=== PATIENT | male | born 1965 | race African-American/Black ===

== ENCOUNTER 2024-12-08 09:59 | Inpatient (IN) ==
[2024-12-08] MEDS: SODIUM CHLORIDE 0.9% 1,000 ML IV ONE (10:46)
[2024-12-08] MEDS: MoRPHine SULFATE 4 MG/ML 1 ML CARP\\VIAL IV STA (10:46)
[2024-12-08] MEDS: ONDANSETRON INJ 2 MG/ML 2 ML VIAL IV STA (10:46)
[2024-12-08 11:04] LABS: Basophils # (auto) 0.05 K/uL (0.00-0.20); Basophils % (auto) 0.3 %; Hematocrit (blood only) 45.8 % (42.0-52.0); Hemoglobin 15.9 g/dl (14.0-18.0); Immature Granulocytes # (auto) 0.06 K/uL (0.01-0.20); Immature Granulocytes % (auto) 0.4 %; Lymphocytes # (auto) 0.69 K/uL (1.20-3.40); Lymphocytes % (auto) 4.6 %; Mean Corpuscular Hemoglobin 28.2 pg (25.0-34.0); Mean Corpuscular Hgb Conc 34.7 g/dL (32.0-36.0); Mean Corpuscular Volume 81.2 fL (80.0-100.0); Mean Platelet Volume 11.7 fL (9.4-12.4); Monocytes # (auto) 1.42 K/uL (0.11-0.59); Monocytes % (auto) 9.5 %; Neutrophils # (auto) 12.77 K/uL (1.40-6.50); Neutrophils % (auto) 85.2 %; Platelet Count 221 K/uL (130-400); RDW Coefficient of Variation 12.1 % (11.5-14.5); RDW Standard Deviation 35.6 fL (36.4-46.3); Red Blood Count 5.64 M/uL (4.70-6.10); White Blood Count 14.99 K/ul (4.8-10.8)
--- NOTE | 2024-12-08 11:05 | Emergency Department Note ---
ED Provider Note History of Present Illness Chief Complaint: GI Assessment Stated Complaint: POSSIBLE GALLBLADDER ATTACK Time Seen by Provider: 12/08/24 10:28 Source: patient Mode of arrival: ambulatory Limitations: no limitations Patient is a 59-year-old male who presents to the emergency department with complaints of right upper quadrant abdominal pain. Patient notes that his pain started on Saturday. Patient is concerned that his pain could be related to a gallbladder attack though the patient has no personal history or family history of gallbladder issues. Patient notes some associated nausea, headache, chills, and general fatigue. Patient reports that his daughter is getting over the flu when he was around her. Home Medications Medication Instructions Recorded Confirmed Type No Known Home Medications 12/08/24 12/08/24 History Allergies Allergy/AdvReac Type Severity Reaction Status Date / Time No Known Allergies Allergy Unverified 12/08/24 14:35 Past Med/Surg History Problem List (Updated 12/08/24 @ 16:31 by JA Martin) Gastritis (Acute) DKA (diabetic ketoacidosis) (Acute) Diabetes mellitus (Acute) Open fracture of finger (Acute) Social History Smoking Status: Never smoker Preferred Language: Indonesian Feels Safe at Home: Yes Physical Exam Vital Signs Vital Signs - 24 hr 12/08/24 10:08 12/08/24 10:37 12/08/24 11:10 Temperature 36.7 C Temperature Source Temporal Artery Scan Pulse Rate 131 H 110 H Pulse Rate from SpO2 Sensor Pulse Rhythm Regular Pulse Strength Normal Respiratory Rate 18 Respiratory Effort / Characteristics Non-Labored Spontaneous Respiratory Depth Normal Respiratory Pattern Regular Blood Pressure 131/101 H Blood Pressure Mean 111 Blood Pressure Position Sitting Pulse Oximetry 96 98 Oxygen Delivery Method Room Air Room Air Sepsis Recent Fever Within 48 Hours No Sepsis New/Unexplained Change in Mental Status N/A Sepsis Action Taken by Nursing No Action Required 12/08/24 11:20 12/08/24 12:11 12/08/24 13:48 Temperature Temperature Source Pulse Rate 107 H 106 H 109 H Pulse Rate from SpO2 Sensor 107 H 107 H 109 H Pulse Rhythm Pulse Strength Respiratory Rate 22 26 H 24 Respiratory Effort / Characteristics Respiratory Depth Respiratory Pattern Blood Pressure 160/89 H 160/97 H Blood Pressure Mean 112 118 Blood Pressure Position Pulse Oximetry 95 94 94 Oxygen Delivery Method Room Air Room Air Room Air Sepsis Recent Fever Within 48 Hours Sepsis New/Unexplained Change in Mental Status Sepsis Action Taken by Nursing 12/08/24 14:33 12/08/24 15:15 12/08/24 15:16 Temperature Temperature Source Pulse Rate 109 H 112 H 112 H Pulse Rate from SpO2 Sensor 109 H Pulse Rhythm Pulse Strength Respiratory Rate 20 26 H Respiratory Effort / Characteristics Respiratory Depth Respiratory Pattern Blood Pressure 163/97 H Blood Pressure Mean 119 Blood Pressure Position Pulse Oximetry 96 Oxygen Delivery Method Room Air Sepsis Recent Fever Within 48 Hours Sepsis New/Unexplained Change in Mental Status Sepsis Action Taken by Nursing VITAL SIGNS - Vital signs and nursing notes were reviewed. GENERAL -59-year-old male appearing his stated age who is in no acute distress. Communicates well with provider and answers questions appropriately. HEAD - NC/AT. EYES - PERRL with EOMI bilaterally. Conjunctiva pink and moist with no injection noted. EARS - No deformities of external structures noted on gross examination bilaterally. NOSE - Midline and without cyanosis. No epistaxis or purulent drainage noted. LUNGS - Chest wall symmetric without accessory muscle use, intercostals retractions, or central cyanosis. Breath sounds clear throughout all obando. No wheezes, rales, or rhonchi appreciated. CARDIAC - RRR with S1/S2. No murmur, rubs, or gallops appreciated. ABDOMEN - Abdominal contour without pulsations or visible masses. Negative Montgomery's or Pritchett John's Signs. BS normoactive all four quadrants. Increased tenderness to palpation appreciated in the right upper quadrant of the abdomen. No guarding. No rebound Tenderness. No palpable masses, hepatosplenomegaly, or ascites noted. NEUROLOGIC - Sensory intact to light touch throughout. PSYCH - A&Ox3 and cooperates fully with examiner. Pt is very pleasant and interacts well with examiner. Course Administered Medications Discontinued Medications Sodium Chloride (Nss) 1,000 mls @ 999 mls/hr IV .Q1H1M ONE Stop: 12/08/24 11:41 Last Infusion: 12/08/24 12:05 Dose: Infused Documented By: Admin: 12/08/24 10:46 Dose: 999 mls/hr Documented By: YARIEL Ioversol (Optiray 320 100ml) 93 ml IV ONCE ONE Stop: 12/08/24 11:48 Last Admin: 12/08/24 11:48 Dose: 93 ml Documented By: CANDACE Morphine Sulfate (Morphine Sulfate 4 Mg/Ml 1 Ml Carp\Vial) 4 mg IV NOW STA Stop: 12/08/24 10:42 Last Admin: 12/08/24 10:46 Dose: 4 mg Documented By: YARIEL Ondansetron HCl (Ondansetron Inj 2 Mg/Ml 2 Ml Vial) 4 mg IV NOW STA Stop: 12/08/24 10:42 Last Admin: 12/08/24 10:46 Dose: 4 mg Documented By: YARIEL Medical Decision Making Differential Diagnosis Differential diagnoses includes gastritis, gastroenteritis, IBS, small bowel obstruction, pancreatitis, peritonitis, constipation, abdominal abcess, cholecystitis, cholelithiasis, among others. Medical Records Attestation: I reviewed the patient's medical records. Home Medications was personally reviewed by me Laboratory Data Attestation: I reviewed the patient's lab results. 12/08/24 10:45 12/08/24 10:45 Lab Results 12/08/24 12/08/24 12/08/24 Range/Units 10:40 10:45 13:42 WBC 14.99 H (4.8-10.8) K/ul RBC 5.64 (4.70-6.10) M/uL Hgb 15.9 (14.0-18.0) g/dl Hct 45.8 (42.0-52.0) % MCV 81.2 (80.0-100.0) fL MCH 28.2 (25.0-34.0) pg MCHC 34.7 (32.0-36.0) g/dL RDW Std Deviation 35.6 L (36.4-46.3) fL RDW Coeff of Jacoby 12.1 (11.5-14.5) % Plt Count 221 (130-400) K/uL MPV 11.7 (9.4-12.4) fL Immature Gran % (Auto) 0.4 % Neut % (Auto) 85.2 % Lymph % (Auto) 4.6 % [place] % (Auto) 9.5 % Eos % (Auto) 0.0 % Baso % (Auto) 0.3 % Neut # (Auto) 12.77 H (1.40-6.50) K/uL Lymph # (Auto) 0.69 L (1.20-3.40) K/uL [place] # (Auto) 1.42 H (0.11-0.59) K/uL Eos # (Auto) 0.00 (0.00-0.50) K/uL Baso # (Auto) 0.05 (0.00-0.20) K/uL Immature Gran # (Auto) 0.06 (0.01-0.20) K/uL Sodium 124 L (136-145) mmol/L Potassium 4.0 (3.5-5.1) mmol/L Chloride 92 L (98-107) mmol/L Carbon Dioxide 18 L (21-32) mmol/L Anion Gap 14 H (3-11) BUN 21 (6-23) mg/dl Creatinine 1.27 (0.6-1.4) mg/dl Est Cr Clr Drug Dosing 81.5 ml/min eGFR 65.49 BUN/Creatinine Ratio 16.5 (10-20) Glucose 366 H* (70-99(Fasting)) mg/dl POC Glucose (70-99) mg/dl Calcium 8.8 (8.6-10.3) mg/dl Total Bilirubin 1.0 (0.2-1.0) mg/dl AST 46 H (13-39) U/L ALT 42 (7-52) U/L Alkaline Phosphatase 61 (34-104) U/L Total Protein 8.6 H (6.0-8.3) gm/dl Albumin 3.8 (3.4-5.0) gm/dl Globulin 4.8 H (2.5-4.0) gm/dl Albumin/Globulin Ratio 0.8 L (0.9-2) Lipase 32 (11-82) U/L Urine Color Dark Yellow Urine Appearance Clear (Clear) Urine pH 5.5 (4.5-7.5) Ur Specific [place] 1.031 H (1.000-1.030) Urine Protein 3+ H (Negative) Urine Glucose (UA) 3+ H (Negative) Urine Ketones 2+ H (Negative) Urine Blood 1+ H (Negative) Urine Nitrite Negative (Negative) Urine Bilirubin Negative (Negative) Urine Urobilinogen Negative (Negative) Ur Leukocyte Esterase Negative (Negative) Urine WBC (Auto) 0-5 (0-5) /hpf Urine RBC (Auto) 0-2 (0-2) /hpf U Hyaline Cast (Auto) >20 H (0-2) /lpf U Epithel Cells (Auto) 3-5 H (0-2) /hpf Urine Bacteria (Auto) None Seen (None Seen) Hyaline Casts Present A (None Presnt) /lpf Granular Casts Present A (None Prsent) /lpf Urine Comment Adenovirus (PCR) Not Detected (NotDetected) B. pertussis DNA (PCR) Not Detected (NotDetected) B.parapertussis DNA PCR Not Detected (NotDetected) C. pneumoniae DNA (PCR) Not Detected (NotDetected) Coronavirus OC43 (PCR) Not Detected (NotDetected) Coronavirus HKU1 (PCR) Not Detected (NotDetected) Coronavirus 229E (PCR) Not Detected (NotDetected) SARS-CoV-2 (PCR) Not Detected (NotDetected) Coronavirus NL63 (PCR) Not Detected (NotDetected) Human Metapneumovir PCR Not Detected (NotDetected) Influenza Type A (PCR) Not Detected (NotDetected) Influenza Type B (PCR) Not Detected (NotDetected) M. pneumoniae (PCR) Not Detected (NotDetected) Parainfluenza 1 (PCR) Not Detected (NotDetected) Parainfluenza 2 (PCR) Not Detected (NotDetected) Parainfluenza 3 (PCR) Not Detected (NotDetected) Parainfluenza 4 (PCR) Not Detected (NotDetected) RSV (PCR) Not Detected (NotDetected) Entero/Rhino (PCR) Not Detected (NotDetected) 12/08/24 Range/Units 15:32 WBC (4.8-10.8) K/ul RBC (4.70-6.10) M/uL Hgb (14.0-18.0) g/dl Hct (42.0-52.0) % MCV (80.0-100.0) fL MCH (25.0-34.0) pg MCHC (32.0-36.0) g/dL RDW Std Deviation (36.4-46.3) fL RDW Coeff of Jacoby (11.5-14.5) % Plt Count (130-400) K/uL MPV (9.4-12.4) fL Immature Gran % (Auto) % Neut % (Auto) % Lymph % (Auto) % [place] % (Auto) % Eos % (Auto) % Baso % (Auto) % Neut # (Auto) (1.40-6.50) K/uL Lymph # (Auto) (1.20-3.40) K/uL [place] # (Auto) (0.11-0.59) K/uL Eos # (Auto) (0.00-0.50) K/uL Baso # (Auto) (0.00-0.20) K/uL Immature Gran # (Auto) (0.01-0.20) K/uL Sodium (136-145) mmol/L Potassium (3.5-5.1) mmol/L Chloride (98-107) mmol/L Carbon Dioxide (21-32) mmol/L Anion Gap (3-11) BUN (6-23) mg/dl Creatinine (0.6-1.4) mg/dl Est Cr Clr Drug Dosing ml/min eGFR BUN/Creatinine Ratio (10-20) Glucose (70-99(Fasting)) mg/dl POC Glucose 294 H (70-99) mg/dl Calcium (8.6-10.3) mg/dl Total Bilirubin (0.2-1.0) mg/dl AST (13-39) U/L ALT (7-52) U/L Alkaline Phosphatase (34-104) U/L Total Protein (6.0-8.3) gm/dl Albumin (3.4-5.0) gm/dl Globulin (2.5-4.0) gm/dl Albumin/Globulin Ratio (0.9-2) Lipase (11-82) U/L Urine Color Urine Appearance (Clear) Urine pH (4.5-7.5) Ur Specific [place] (1.000-1.030) Urine Protein (Negative) Urine Glucose (UA) (Negative) Urine Ketones (Negative) Urine Blood (Negative) Urine Nitrite (Negative) Urine Bilirubin (Negative) Urine Urobilinogen (Negative) Ur Leukocyte Esterase (Negative) Urine WBC (Auto) (0-5) /hpf Urine RBC (Auto) (0-2) /hpf U Hyaline Cast (Auto) (0-2) /lpf U Epithel Cells (Auto) (0-2) /hpf Urine Bacteria (Auto) (None Seen) Hyaline Casts (None Presnt) /lpf Granular Casts (None Prsent) /lpf Urine Comment Adenovirus (PCR) (NotDetected) B. pertussis DNA (PCR) (NotDetected) B.parapertussis DNA PCR (NotDetected) C. pneumoniae DNA (PCR) (NotDetected) Coronavirus OC43 (PCR) (NotDetected) Coronavirus HKU1 (PCR) (NotDetected) Coronavirus 229E (PCR) (NotDetected) SARS-CoV-2 (PCR) (NotDetected) Coronavirus NL63 (PCR) (NotDetected) Human Metapneumovir PCR (NotDetected) Influenza Type A (PCR) (NotDetected) Influenza Type B (PCR) (NotDetected) M. pneumoniae (PCR) (NotDetected) Parainfluenza 1 (PCR) (NotDetected) Parainfluenza 2 (PCR) (NotDetected) Parainfluenza 3 (PCR) (NotDetected) Parainfluenza 4 (PCR) (NotDetected) RSV (PCR) (NotDetected) Entero/Rhino (PCR) (NotDetected) Imaging Data Radiologist's Impression: Abdomen/Pelvis CT 12/08/24 10:[address] WITH IV CONTRAST CT DOSE: 1497.24 mGy.cm HISTORY: RUQ pain TECHNIQUE: Multiaxial CT images of the abdomen and pelvis were performed following the IV administration of 90 cc of Optiray, A dose lowering technique was utilized adhering to the principles of ALARA. COMPARISON STUDY: None FINDINGS: ABDOMEN: There is severe fatty liver. Otherwise the liver, gallbladder, spleen, pancreas, and adrenal glands are unremarkable. Kidneys show no hydronephrosis. There are is a small calculus at the left mid kidney. There is a tiny cyst left mid kidney. There are mild atherosclerotic calcifications. No abdominal aortic aneurysm. Pelvis: Prostate is mildly enlarged. Urinary bladder is mildly distended. There is sigmoid diverticulosis. No acute diverticulitis. No bowel inflammation or obstruction seen. No free fluid, free air, or abscess. There is mild lower lumbar disc disease with grade 1 anterolisthesis of L5 on S1. IMPRESSION: No acute findings seen. ACT 112: Negative or not required by law. The above report was generated using voice recognition software. It may contain grammatical, syntax or spelling errors. Electronically signed by: Bart Ireland M.D. 12/08/2024 12:28 PM Gallbladder Ultrasound 12/08/24 12:32 US gallbladder CLINICAL HISTORY: RUQ pain COMPARISON STUDY: CT scan earlier today FINDINGS: Pancreas is obscured by bowel gas. There is severe fatty liver. Deep portion of the liver is not well seen. Common bile duct has normal diameter of 5 mm. Gallbladder is unremarkable with no gallstones or gallbladder wall thickening. No pericholecystic fluid or ascites. Right kidney shows no hydronephrosis. IMPRESSION: 1. No gallstones or evidence of acute cholecystitis seen. 2. Severe fatty liver. ACT 112: Negative or not required by law. Electronically signed by: Bart Ireland M.D. 12/08/2024 1:25 PM MDM Narrative Patient is a 59-year-old male who presents to the emergency department with complaints of right upper quadrant abdominal pain. Patient notes that his pain started on Saturday. Patient is concerned that his pain could be related to a gallbladder attack though the patient has no personal history or family history of gallbladder issues. Patient notes some associated nausea, headache, chills, and general fatigue. Patient reports that his daughter is getting over the flu when he was around her. Patient was evaluated by myself and findings were noted in the physical exam above. Patient was ordered IV placement, lab work, urinalysis, and CT of the abdomen pelvis. Patient's lab work resulted with an elevated white blood cell count of 14.99. Patient had no indication of anemia with hemoglobin of 15.9 and hematocrit 45.8. Patient was hyponatremic with a sodium of 124. Patient also had an elevated blood glucose of 366. Patient's chloride was also low at 92 and a carbon dioxide of 18. Patient does report that he has been nauseous, vomiting and having diarrhea for the last several days. Patient did have a urinalysis that was positive for protein, glucose, ketones and blood. While the patient's lab work results may be related to some level of dehydration due to his vomiting and diarrhea, he also has had concerns about diabetes and is not currently being treated with anything for diabetes. Patient was also ordered an upper respiratory viral panel due to his daughter being recently diagnosed with the flu and he had contact with her, however his upper respiratory viral panel was negative for any viral process. Patient also had an abdomen pelvis CT which was completed and interpreted by radiology to show no acute findings. The prostate was mildly enlarged and the patient had some diverticulosis without evidence of acute diverticulitis. The patient also had a gallbladder/right upper quadrant ultrasound completed due to his right upper quadrant pain however that ultrasound was completed and interpreted by radiology to show no gallstones or evidence of acute cholecystitis. The patient did have fatty liver noted on ultrasound as well. I discussed all these findings with the patient and his significant other at bedside who both verbalized understanding. I discussed with the patient that it would be reasonable to admit him to the hospital for new onset of uncontrolled diabetes as he does have some electrolyte imbalance and ketones in his urine that could be indicative of complications due to uncontrolled diabetes, such as hyponatremia. Patient verbalized understanding and was agreeable to the plan for admission as he was concerned about going home and not feeling any better and his current nausea and discomfort making things worse at home. I reached out to the [facility] hospitalist group and spoke with them regarding admission of this patient. They were given a full report of the patient's chief complaint, current status and the results of his lab work and imaging. They are agreeable to admit the patient under Dr. Torres's service. Please refer to the [facility] hospitalist group's documentation for further evaluation and management of this patient. Impression Diabetes mellitus, Gastritis, DKA (diabetic ketoacidosis) Discharge Plan Visit Data Chief Complaint: GI Assessment Stated Complaint: POSSIBLE GALLBLADDER ATTACK ED Provider: Waldo Shin ED Midlevel Provider: Jammie Aguilar Discharge Problem: Diabetes mellitus, Gastritis, DKA (diabetic ketoacidosis) Patient Disposition: Admitted As Inpatient Condition: Fair Forms Stand Alone Forms: [employer] Prescriptions Prescriptions: No Action No Known Home Medications Referrals Referrals: PCP,NO [Physician] - ED DC CONDITION Conditon at Discharge Condition at Discharge: Fair Discharge Problem: Diabetes mellitus Qualifiers: Diabetes mellitus type: type 2 Diabetes mellitus fci insulin use: without technician terminal and repeater use Diabetes mellitus complication status: with ketoacidosis Diabetes mellitus complication detail: without coma Qualified Code(s): E11.10 - Type 2 diabetes mellitus with ketoacidosis without coma Gastritis Qualifiers: Gastritis type: unspecified gastritis Chronicity: acute Gastritis bleeding: w ithout bleeding Qualified Code(s): K29.00 - Acute gastritis without bleeding DKA (diabetic ketoacidosis) Qualifiers: Diabetes mellitus type: type 2 Diabetes mellitus complication detail: without coma Qualified Code(s): E11.10 - Type 2 diabetes mellitus with ketoacidosis without coma
[2024-12-08 11:32] LABS: Albumin Globulin Ratio 0.8 (0.9-2); Albumin Level 3.8 gm/dl (3.4-5.0); BUN Creatinine Ratio 16.5 (10-20); Calcium 8.8 mg/dl (8.6-10.3); Creatinine Clr Calc Pharmacy 81.5 ml/min; Globulin 4.8 gm/dl (2.5-4.0); Total Protein 8.6 gm/dl (6.0-8.3)
[2024-12-08 11:42] LABS: Adenovirus PCR Not Detected (NotDetected); Bordetella parapertussis PCR Not Detected (NotDetected); Bordetella pertussis PCR Not Detected (NotDetected); Chlamydia pneumoniae PCR Not Detected (NotDetected); Coronavirus 229E PCR Not Detected (NotDetected); Coronavirus CoV-2 (COVID19)PCR Not Detected (NotDetected); Coronavirus HKU1 PCR Not Detected (NotDetected); Coronavirus NL63 PCR Not Detected (NotDetected); Coronavirus OC43PCR Not Detected (NotDetected); Human Metapneumovirus PCR Not Detected (NotDetected); Influenza A PCR Not Detected (NotDetected); Influenza B PCR Not Detected (NotDetected); Mycoplasma pneumoniae PCR Not Detected (NotDetected); Parainfluenza Virus 1 PCR Not Detected (NotDetected); Parainfluenza Virus 2 PCR Not Detected (NotDetected); Parainfluenza Virus 3 PCR Not Detected (NotDetected); Parainfluenza Virus 4 PCR Not Detected (NotDetected); Respiratory Syncytial VirusPCR Not Detected (NotDetected); Rhinovirus/Enterovirus PCR Not Detected (NotDetected)
[2024-12-08] MEDS: OPTIRAY 320 100ml IV ONE (11:48)
--- NOTE | 2024-12-08 12:30 | CT Scan Report ---
ABDOMEN AND PELVIS CT WITH IV CONTRAST CT DOSE: 1497.24 mGy.cm HISTORY: RUQ pain TECHNIQUE: Multiaxial CT images of the abdomen and pelvis were performed following the IV administrat ion of 90 cc of Optiray, A dose lowering technique was utilized adhering to the principles of ALARA. COMPARISON STUDY: None FINDINGS: ABDOMEN: There is severe fatty liver. Otherwise the liver, gallbladder, spleen, pancreas, and adrenal glands are unremarkable. Kidneys show no hydronephrosis. There are is a small calculus at the left m id kidney. There is a tiny cyst left mid kidney. There are mild atherosclerotic calcifications. No ab dominal aortic aneurysm. Pelvis: Prostate is mildly enlarged. Urinary bladder is mildly distended. There is sigmoid diverticul osis. No acute diverticulitis. No bowel inflammation or obstruction seen. No free fluid, free air, or abscess. There is mild lower lumbar disc disease with grade 1 anterolisthesis of L5 on S1. IMPRESSION: No acute findings seen. ACT 112: Negative or not required by law. The above report was generated using voice recognition software. It may contain grammatical, syntax o r spelling errors. Electronically signed by: Bart Ireland M.D. 12/08/2024 12:28 PM
--- NOTE | 2024-12-08 13:27 | Ultrasound Report ---
US gallbladder CLINICAL HISTORY: RUQ pain COMPARISON STUDY: CT scan earlier today FINDINGS: Pancreas is obscured by bowel gas. There is severe fatty liver. Deep portion of the liver i s not well seen. Common bile duct has normal diameter of 5 mm. Gallbladder is unremarkable with no ga llstones or gallbladder wall thickening. No pericholecystic fluid or ascites. Right kidney shows no h ydronephrosis. IMPRESSION: 1. No gallstones or evidence of acute cholecystitis seen. 2. Severe fatty liver. ACT 112: Negative or not required by law. Electronically signed by: Bart Ireland M.D. 12/08/2024 1:25 PM
[2024-12-08 14:01] LABS: Appearance Urine Clear (Clear); Bacteria Urine Automated None Seen (None Seen); Bilirubin Urine Negative (Negative); Blood Urine 1+ (Negative); Cast Urine Automated >20 /lpf (0-2); Color Urine Dark Yellow; Glucose Urine UA 3+ (Negative); Granular Casts Urine Present /lpf (None Prsent); Hyaline Casts Urine Present /lpf (None Presnt); Ketones Urine 2+ (Negative); Leukocyte Esterase Urine Negative (Negative); Nitrite Urine Negative (Negative); Protein Urine 3+ (Negative); RBC Urine Automated 0-2 /hpf (0-2); Specific Gravity Urine 1.031 (1.000-1.030); Urobilinogen Urine Negative (Negative); WBC Urine Automated 0-5 /hpf (0-5); pH Urine 5.5 (4.5-7.5)
[2024-12-08] MEDS ORDERED: PHARMACY GLYCEMIC MGMT CONSULT PRN ×3 (15:08→20:17)
--- NOTE | 2024-12-08 15:08 | Communication Note ---
Date of Service: December 08, 2024 Multiple Incidental Findings on CT Abd/pelvis: There is severe fatty liver. There are is a small calculus at the left mid kidney. There is a tiny cyst left mid kidney. There are mild atherosclerotic calcifications. Prostate is mildly enlarged. There is mild lower lumbar disc disease with grade 1 anterolisthesis of L5 on S1. Further work up, management, and ff up as outpatient Trenton Torres MD
--- NOTE | 2024-12-08 15:17 | History & Physical Report ---
Date of Service December 08, 2024 Assessment & Plan (1) Diabetes mellitus: (2) DKA (diabetic ketoacidosis): (3) Gastritis: Plan The patient is a 59-year-old male who presented to the ED on 12/08/2024 with complaints of right upper quadrant pain and diarrhea. Found to be newly diab etic and in mild DKA New DM 2 Hyponatremia DKA Sugar on arrival 366, anion gap elevated at 14, bicarb 18, UA + ketones Given IV fluids in the ED, check VBG/lactic, start insulin drip, check A1c Corrected sodium 129, likely dry due to recent diarrhea, continue IV fluids and recheck BMP Check lipid panel for completeness, will likely need to be started on insulin on discharge Gastroenteritis Reports abdominal pain, CT A/P unremarkable for anything acute Reports at least 10 episodes of diarrhea over the past 3 days, likely viral, check stool culture Lipase within normal limits, right upper quadrant ultrasound negative Fatty liver: -Noted on CT A/P, will need outpatient follow-up Total of 60 minutes spent on chart review/reviewing diagnostic data/results) care/discussion with consultants Full code DVT prophylaxis: Lovenox History of Present Illness Chief Complaint: Abdominal pain, diarrhea Primary Care Provider: Td Emanuel MD The patient is a 59-year-old male with no past medical history who presents to the ED on 12/08/2024 with complaints of abdominal pain and diarrhea over the past 2 days. Reports his 8-year-old daughter also has a respiratory illness. His [id number] had C. difficile 3 weeks ago. Patient reports right upper quadrant abdominal pain. Denies any nausea or vomiting. Reports chills but denies any actual fevers. Reports the last time he saw a DrGomez Was about 2 years ago. Unsure of the last time he got blood work. Was never diagnosed with diabetes or prediabetes. On arrival to the ED, labs remarkable for WBC 14, blood glucose 366, NA 124, bicarb 18, anion gap 14, AST 46 Urinalysis + ketones Gallbladder ultrasound negative Abdomen/pelvis CT negative for anything acute, severe fatty liver noted The patient will be admitted for further management of gastritis and new diabetes and suspected DKA Allergies Allergy/AdvReac Type Severity Reaction Status Date / Time No Known Allergies Allergy Unverified 12/08/24 14:35 Home Medications Medication Instructions Recorded Confirmed Type No Known Home Medications 12/08/24 12/08/24 History Past Med/Surg History Problem List (Updated 12/08/24 @ 16:31 by JA Martin) Gastritis (Acute) DKA (diabetic ketoacidosis) (Acute) Diabetes mellitus (Acute) Open fracture of finger (Acute) Social History Smoking Status: Never smoker Preferred Language: [place] Feels Safe at Home: Yes Review of Systems Review of Systems: All systems reviewed & are unremarkable except as noted in HPI & below Physical Exam Constitutional: WD/WN, vitals as above Eyes: PERRL, conjunctivae normal, anicteric sclerae ENMT: external ear and nose normal, oropharynx normal Neck: trachea midline, no thyromegaly Respiratory: normal respiratory effort, lungs clear to auscultation Cardiovascular: RRR, no murmur, no edema Gastrointestinal (Abdomen): normal bowel sounds, soft, nontender, no hepatosplenomegaly Musculoskeletal: no cyanosis or clubbing, extremities motor strength 5/5 Skin: no rashes, warm and dry Neurologic: PERRL, EOMI, accommodation nl, no face palsy, no dysarthria Psychiatric: A+Ox3, euthymic affect Lymphatic: no cervical or axillary lymphadenopathy Results & Data Results & Data Vital Signs (Past 12 Hours) Vital Signs Temp Pulse Resp BP Pulse Ox O2 Del Method 12/08/24 12:11 106 H 26 H 160/89 H 94 Room Air 12/08/24 11:20 107 H 22 95 Room Air 12/08/24 11:10 110 H 12/08/24 10:37 98 Room Air 12/08/24 10:08 36.7 C 131 H 18 131/101 H 96 Room Air Diagnostic Findings Laboratory Results WBC 14.99 K/ul (4.8-10.8) H 12/08/24 10:45 RBC 5.64 M/uL (4.70-6.10) 12/08/24 10:45 Hgb 15.9 g/dl (14.0-18.0) 12/08/24 10:45 Hct 45.8 % (42.0-52.0) 12/08/24 10:45 MCV 81.2 fL (80.0-100.0) 12/08/24 10:45 MCH 28.2 pg (25.0-34.0) 12/08/24 10:45 MCHC 34.7 g/dL (32.0-36.0) 12/08/24 10:45 RDW Std Deviation 35.6 fL (36.4-46.3) L 12/08/24 10:45 RDW Coeff of Jacoby 12.1 % (11.5-14.5) 12/08/24 10:45 Plt Count 221 K/uL (130-400) 12/08/24 10:45 MPV 11.7 fL (9.4-12.4) 12/08/24 10:45 Immature Gran % (Auto) 0.4 % 12/08/24 10:45 Neut % (Auto) 85.2 % 12/08/24 10:45 Lymph % (Auto) 4.6 % 12/08/24 10:45 Carolina % (Auto) 9.5 % 12/08/24 10:45 Eos % (Auto) 0.0 % 12/08/24 10:45 Baso % (Auto) 0.3 % 12/08/24 10:45 Neut # (Auto) 12.77 K/uL (1.40-6.50) H 12/08/24 10:45 Lymph # (Auto) 0.69 K/uL (1.20-3.40) L 12/08/24 10:45 Carolina # (Auto) 1.42 K/uL (0.11-0.59) H 12/08/24 10:45 Eos # (Auto) 0.00 K/uL (0.00-0.50) 12/08/24 10:45 Baso # (Auto) 0.05 K/uL (0.00-0.20) 12/08/24 10:45 Immature Gran # (Auto) 0.06 K/uL (0.01-0.20) 12/08/24 10:45 Sodium 124 mmol/L (136-145) L 12/08/24 10:45 Potassium 4.0 mmol/L (3.5-5.1) 12/08/24 10:45 Chloride 92 mmol/L (98-107) L 12/08/24 10:45 Carbon Dioxide 18 mmol/L (21-32) L 12/08/24 10:45 Anion Gap 14 (3-11) H 12/08/24 10:45 BUN 21 mg/dl (6-23) 12/08/24 10:45 Creatinine 1.27 mg/dl (0.6-1.4) 12/08/24 10:45 Est Cr Clr Drug Dosing 81.5 ml/min 12/08/24 10:45 eGFR 65.49 12/08/24 10:45 BUN/Creatinine Ratio 16.5 (10-20) 12/08/24 10:45 Glucose 366 mg/dl (70-99(Fasting)) H* 12/08/24 10:45 Calcium 8.8 mg/dl (8.6-10.3) 12/08/24 10:45 Total Bilirubin 1.0 mg/dl (0.2-1.0) 12/08/24 10:45 AST 46 U/L (13-39) H 12/08/24 10:45 ALT 42 U/L (7-52) 12/08/24 10:45 Alkaline Phosphatase 61 U/L (34-104) 12/08/24 10:45 Total Protein 8.6 gm/dl (6.0-8.3) H 12/08/24 10:45 Albumin 3.8 gm/dl (3.4-5.0) 12/08/24 10:45 Globulin 4.8 gm/dl (2.5-4.0) H 12/08/24 10:45 Albumin/Globulin Ratio 0.8 (0.9-2) L 12/08/24 10:45 Lipase 32 U/L (11-82) 12/08/24 10:45 Urine Color Dark Yellow 12/08/24 13:42 Urine Appearance Clear (Clear) 12/08/24 13:42 Urine pH 5.5 (4.5-7.5) 12/08/24 13:42 Ur Specific [place] 1.031 (1.000-1.030) H 12/08/24 13:42 Urine Protein 3+ (Negative) H 12/08/24 13:42 Urine Glucose (UA) 3+ (Negative) H 12/08/24 13:42 Urine Ketones 2+ (Negative) H 12/08/24 13:42 Urine Blood 1+ (Negative) H 12/08/24 13:42 Urine Nitrite Negative (Negative) 12/08/24 13:42 Urine Bilirubin Negative (Negative) 12/08/24 13:42 Urine Urobilinogen Negative (Negative) 12/08/24 13:42 Ur Leukocyte Esterase Negative (Negative) 12/08/24 13:42 Urine WBC (Auto) 0-5 /hpf (0-5) 12/08/24 13:42 Urine RBC (Auto) 0-2 /hpf (0-2) 12/08/24 13:42 U Hyaline Cast (Auto) >20 /lpf (0-2) H 12/08/24 13:42 U Epithel Cells (Auto) 3-5 /hpf (0-2) H 12/08/24 13:42 Urine Bacteria (Auto) None Seen (None Seen) 12/08/24 13:42 Hyaline Casts Present /lpf (None Presnt) A 12/08/24 13:42 Granular Casts Present /lpf (None Prsent) A 12/08/24 13:42 Urine Comment 12/08/24 13:42 Adenovirus (PCR) Not Detected (NotDetected) 12/08/24 10:40 B. pertussis DNA (PCR) Not Detected (NotDetected) 12/08/24 10:40 B.parapertussis DNA PCR Not Detected (NotDetected) 12/08/24 10:40 C. pneumoniae DNA (PCR) Not Detected (NotDetected) 12/08/24 10:40 Coronavirus OC43 (PCR) Not Detected (NotDetected) 12/08/24 10:40 Coronavirus HKU1 (PCR) Not Detected (NotDetected) 12/08/24 10:40 Coronavirus 229E (PCR) Not Detected (NotDetected) 12/08/24 10:40 SARS-CoV-2 (PCR) Not Detected (NotDetected) 12/08/24 10:40 Coronavirus NL63 (PCR) Not Detected (NotDetected) 12/08/24 10:40 Human Metapneumovir PCR Not Detected (NotDetected) 12/08/24 10:40 Influenza Type A (PCR) Not Detected (NotDetected) 12/08/24 10:40 Influenza Type B (PCR) Not Detected (NotDetected) 12/08/24 10:40 M. pneumoniae (PCR) Not Detected (NotDetected) 12/08/24 10:40 Parainfluenza 1 (PCR) Not Detected (NotDetected) 12/08/24 10:40 Parainfluenza 2 (PCR) Not Detected (NotDetected) 12/08/24 10:40 Parainfluenza 3 (PCR) Not Detected (NotDetected) 12/08/24 10:40 Parainfluenza 4 (PCR) Not Detected (NotDetected) 12/08/24 10:40 RSV (PCR) Not Detected (NotDetected) 12/08/24 10:40 Entero/Rhino (PCR) Not Detected (NotDetected) 12/08/24 10:40 Impressions Abdomen/Pelvis CT 12/08/24 10:[address] WITH IV CONTRAST CT DOSE: 1497.24 mGy.cm HISTORY: RUQ pain TECHNIQUE: Multiaxial CT images of the abdomen and pelvis were performed following the IV administration of 90 cc of Optiray, A dose lowering technique was utilized adhering to the principles of ALARA. COMPARISON STUDY: None FINDINGS: ABDOMEN: There is severe fatty liver. Otherwise the liver, gallbladder, spleen, pancreas, and adrenal glands are unremarkable. Kidneys show no hydronephrosis. There are is a small calculus at the left mid kidney. There is a tiny cyst left mid kidney. There are mild atherosclerotic calcifications. No abdominal aortic a neurysm. Pelvis: Prostate is mildly enlarged. Urinary bladder is mildly distended. There is sigmoid diverticulosis. No acute diverticulitis. No bowel inflammation or obstruction seen. No free fluid, free air, or abscess. There is mild lower lumbar disc disease with grade 1 anterolisthesis of L5 on S1. IMPRESSION: No acute findings seen. ACT 112: Negative or not required by law. The above report was generated using voice recognition software. It may contain grammatical, syntax or spelling errors. Electronically signed by: Bart Ireland M.D. 12/08/2024 12:28 PM Gallbladder Ultrasound 12/08/24 12:32 US gallbladder CLINICAL HISTORY: RUQ pain COMPARISON STUDY: CT scan earlier today FINDINGS: Pancreas is obscured by bowel gas. There is severe fatty liver. Deep portion of the liver is not well seen. Common bile duct has normal diameter of 5 mm. Gallbladder is unremarkable with no gallstones or gallbladder wall thickening. No pericholecystic fluid or ascites. Right kidney shows no hydronephrosis. IMPRESSION: 1. No gallstones or evidence of acute cholecystitis seen. 2. Severe fatty liver. ACT 112: Negative or not required by law. Electronically signed by: Bart Ireland M.D. 12/08/2024 1:25 PM Supervising Physician Co-Signing Physician Notes Attending Addendum: Case reviewed with the advanced practitioner. I have personally performed a history and physical examination on the patient. I have reviewed the advanced practitioner's documentation on the date of service referenced in note, and I agree with, and take responsibility for the plan of care. please refer to her notes for full details patient seen and examined, records reviewed by myself as well on exam, patient seen resting in bed, comfortable not in distress states he feels ok overall has mild headache, no focal neuro symptoms, chest pain, nausea abdominal pain improving no other symptoms VS noted and reviewed oriented x3, not in distress, speaks in sentences with no effort nor accessory muscle use mild tachycardia, regular rhythm, no murmurs clear breath sounds bilaterally non distended, soft, nontender no bipedal edema, erythema, warmth no neuro deficits all labs, imaging noted and reviewed ASSESSMENT AND PLAN> METABOLIC ACIDOSIS likely from GASTROENTERITIS POSSIBLE SEPSIS anion gap and metabolic acidosis resolved after IV fluids lactic acid normal check stool panel, c diff, blood cultures empiric Cipro IV given diarrhea more than 10x a day, fever IV fluids, clear liquids DM, NEW DIAGNOSIS admitted with metabolic acidosis with anion gap, that resolved with just IV fluids check a1c Pharmacy glycemic consult metabolic acidosis and anion gap resolved, d/c Insulin drip, transition to SC insulin DM educator HEADACHE, MILD CONFUSION late afternoon, patient's reported patient was saying illogical things, also reporting headache, temp 39+ BSG 261 from morphine? sepsis? check CT head to r/o CVA, bleed neurocheck q4h INCIDENTAL FINDINGS ON CT ABD/PELVIS please refer to communication note will need further work up and close outpatient ff up other diagnoses and plan of care as per advanced practitioner's notes I spent a total of 60 minutes coordinating, documenting, and providing care for this patient, excluding time spent in the performance of separately billed services or time spent by another provider/QHP. Trenton Torres MD
[2024-12-08] MEDS ORDERED: CARBOHYDRATES FOR HYPOGLYCEMIA PO PRN (15:30)
[2024-12-08] MEDS ORDERED: GLUCOSE 40% GEL 15 GM TUBE PO PRN (15:30)
[2024-12-08] MEDS ORDERED: NovoLIN-R BOLUS FROM BAG IV ONE (15:30)
[2024-12-08] MEDS ORDERED: GLUCOSE 10 TAB/TUBE PO PRN (15:30)
[2024-12-08] MEDS ORDERED: GLUCAGON FOR INJ 1 MG VIAL SQ PRN (15:30)
[2024-12-08] MEDS ORDERED: DEXTROSE 50% 50 ML SYRINGE IV PRN (15:30)
[2024-12-08] MEDS: LACTATED RINGER'S 250 ML IV ONE (16:43)
[2024-12-08] MEDS: INSULIN REGULAR 250 UNITS in SODIUM CHLORIDE 0.9% 247.5 ML IV SCH (16:44)
[2024-12-08 17:10] LABS: BUN Creatinine Ratio 16.4 (10-20); Calcium 8.7 mg/dl (8.6-10.3); Chol HDL Ratio 4.7 (0-5); Creatinine Clr Calc Pharmacy 94.1 ml/min; Magnesium 1.8 mg/dl (1.7-2.4); Phosphorus 1.7 mg/dl (2.5-4.9); Potassium 4.1 mmol/L (3.5-5.1)
[2024-12-08] MEDS: ACETAMINOPHEN 325 MG TAB PO PRN (17:33)
[2024-12-08 17:57] LABS: Estimated Average Glucose 278 mg/dl; Hemoglobin A1C 11.3 % (4.5-5.6)
[2024-12-08] MEDS ORDERED: INSULIN REGULAR 250 UNITS in SODIUM CHLORIDE 0.9% 247.5 ML IV SCH (18:50)
[2024-12-08] MEDS ORDERED: INSULIN ASPART PER UNIT CHARGE SC SCH (18:50)
[2024-12-08] MEDS ORDERED: ONDANSETRON INJ 2 MG/ML 2 ML VIAL IV PRN (18:50)
[2024-12-08] MEDS ORDERED: STAT IV Infusion **Titration per Protocol STA (18:50)
[2024-12-08] MEDS ORDERED: PLASMA-LYTE A 1,000 ML IV SCH (18:50)
[2024-12-08] MEDS ORDERED: ACETAMINOPHEN 325 MG TAB PO PRN (18:50)
[2024-12-08] MEDS: INSULIN ASPART PER UNIT CHARGE SC SCH ×2 (19:14→21:39)
[2024-12-08] MEDS: STAT IV Infusion **Titration per Protocol STA (19:14)
[2024-12-08] MEDS: CIPROFLOXACIN / D5W 400 MG/200 ML BAG IV STA (19:38)
[2024-12-08 20:13] LABS: BUN Creatinine Ratio 15.9 (10-20); Calcium 8.8 mg/dl (8.6-10.3); Creatinine Clr Calc Pharmacy 96.8 ml/min; Magnesium 1.9 mg/dl (1.7-2.4); Phosphorus 1.8 mg/dl (2.5-4.9); Potassium 3.5 mmol/L (3.5-5.1)
--- NOTE | 2024-12-08 20:29 | CT Scan Report ---
EXAM: CT head/brain wo con CLINICAL HISTORY: headache, confusion TECHNIQUE: Axial non-contrast CT scan of the brain was performed from the skull base to the high parietal region. One of the following dose reduction techniques were utilized for this exam: Automated exposure control, adjustment of the mA and/or kV according to patient size, use of iterative reconstruction. COMPARISON: none. FINDINGS: Brain Parenchyma: Normal attenuation of the cerebral hemispheres, cerebellum, and brainstem. No evidence of acute infarct, hemorrhage, or mass effect. No abnormal areas of hypo- or hyperattenuation. Ventricular System: Ventricles are normal in size and configuration. No evidence of hydrocephalus or ventricular enlargement. Subarachnoid Spaces: Normal sulci and cisterns. No evidence of subarachnoid hemorrhage or extra-axial fluid collections. Cerebellum and Brainstem: No masses, lesions, or areas of abnormal density. Orbits: Normal appearance of the globes, optic nerves, and extraocular muscles. No evidence of orbital masses or abnormal density. Sinuses: Clear paranasal sinuses. No evidence of sinusitis or mucosal thickening. Mastoid Air Cells: Clear mastoid air cells. No evidence of mastoiditis. Skull: Normal skull morphology. IMPRESSION: Normal CT of the head without contrast. No evidence of acute infarct, hemorrhage, or mass effect. Electronically signed by Jak Dai 12-08-2024 8:29 PM
[2024-12-08] MEDS: PLASMA-LYTE A 1,000 ML IV SCH (20:42)
[2024-12-08] MEDS: POTASSIUM PHOSPHATE 21 MMOL in SODIUM CHLORIDE 0.9% 500 ML IV ONE (20:44)
[2024-12-08] MEDS: POTASSIUM PHOS 3 MMOL/1 ML INFUSION IV STA (20:44)
--- NOTE | 2024-12-08 21:50 | Electrocardiogram Report ---
Test Reason : Blood Pressure : */* mmHG Vent. Rate : 118 BPM Atrial Rate : 118 BPM P-R Int : 146 ms QRS Dur : 76 ms QT Int : 350 ms P-R-T Axes : 60 62 81 degrees QTcB Int : 490 ms Sinus tachycardia Incomplete right bundle branch block Anterior infarct , age undetermined Prolonged QT Abnormal ECG No previous ECGs available Confirmed by Alec Almanzar ([id number]) on 12/08/2024 9:50:40 PM Referred By: REFERRED SELF Confirmed By: Alec Almanzar
[2024-12-09] MEDS: INSULIN ASPART PER UNIT CHARGE SC SCH (00:02)
[2024-12-09 03:27] LABS: Basophils # (auto) 0.06 K/uL (0.00-0.20); Basophils % (auto) 0.5 %; Eosinophils # (auto) 0.02 K/uL (0.00-0.50); Eosinophils % (auto) 0.2 %; Hematocrit (blood only) 41.8 % (42.0-52.0); Hemoglobin 14.4 g/dl (14.0-18.0); Immature Granulocytes # (auto) 0.04 K/uL (0.01-0.20); Immature Granulocytes % (auto) 0.3 %; Lymphocytes # (auto) 1.22 K/uL (1.20-3.40); Mean Corpuscular Hemoglobin 28.1 pg (25.0-34.0); Mean Corpuscular Hgb Conc 34.4 g/dL (32.0-36.0); Mean Corpuscular Volume 81.5 fL (80.0-100.0); Mean Platelet Volume 11.7 fL (9.4-12.4); Monocytes # (auto) 1.83 K/uL (0.11-0.59); Monocytes % (auto) 15.1 %; Neutrophils # (auto) 8.97 K/uL (1.40-6.50); Neutrophils % (auto) 73.9 %; Platelet Count 181 K/uL (130-400); RDW Standard Deviation 36.2 fL (36.4-46.3); Red Blood Count 5.13 M/uL (4.70-6.10); White Blood Count 12.14 K/ul (4.8-10.8)
[2024-12-09 03:43] LABS: Albumin Globulin Ratio 0.7 (0.9-2); Albumin Level 3.1 gm/dl (3.4-5.0); BUN Creatinine Ratio 15.7 (10-20); Bilirubin,Total 0.8 mg/dl (0.2-1.0); Calcium 8.7 mg/dl (8.6-10.3); Creatinine Clr Calc Pharmacy 101.5 ml/min; Globulin 4.4 gm/dl (2.5-4.0); Phosphorus 2.7 mg/dl (2.5-4.9); Potassium 4.5 mmol/L (3.5-5.1); Total Protein 7.5 gm/dl (6.0-8.3)
[2024-12-09] MEDS: CIPROFLOXACIN / D5W 400 MG/200 ML BAG IV SCH (06:00)
[2024-12-09] MEDS ORDERED: POTASSIUM PHOS 3 MMOL/1 ML INFUSION IV STA (08:26)
[2024-12-09] MEDS: LANTUS PER UNIT CHARGE SC SCH (08:31)
[2024-12-09] MEDS: POTASSIUM PHOSPHATE 15 MMOL in SODIUM CHLORIDE 0.9% 250 ML IV ONE (09:28)
--- NOTE | 2024-12-09 10:02 | Pharmacy Report ---
Pharmacy Glycemic Short Note 2 - Date of Service December 09, 2024 - Glycemic Short BSG Results (Last 24 hours): 12/08/24 12/08/24 12/08/24 10:45 15:32 16:05 Glucose 366 H* 306 H* POC Glucose 294 H 12/08/24 12/08/24 12/08/24 16:05 16:27 16:41 Glucose Cancelled Cancelled POC Glucose 293 H 12/08/24 12/08/24 12/08/24 17:26 18:29 19:19 Glucose 162 H POC Glucose 261 H 206 H 12/08/24 12/08/24 12/08/24 20:00 20:28 21:33 Glucose POC Glucose 126 H 156 H 185 H 12/08/24 12/09/24 12/09/24 23:46 03:11 03:56 Glucose 200 H POC Glucose 207 H 216 H 12/09/24 07:17 Glucose POC Glucose 205 H OUTPATIENT ANTIDIABETIC REGIMEN: * n/a ASSESSMENT: * Patient presenting with complaints of right upper quadrant pain/diarrhea. Also found to be newly diabetic/mild DKA on admission. Had initially been started on insulin infusion, however labs quickly resolved and transitioned to SQ insulin * Fasting BSG 205 mg/dL this AM - plan to start basal 0.2 units/kg daily in addition to novolog. A1c ~11% - patient would likely benefit from insulin at time of discharge. DM educator consulted. PLAN FOR INPATIENT GLYCEMIC CONTROL: * Basal insulin * Lantus 25 units daily * Bolus insulin * NovoLog per scale ACHS or Q6hrs while NPO * Goal Range: Low 110 mg/dL - High 140 mg/dL * Correction Factor: 20 mg/dL/unit * Nutritional / Prandial insulin per carb ratio of 1 unit per 7 grams CHO consumed
[2024-12-09 11:19] LABS: C. diff 027-NAP1-BI NEGATIVE; Cdiff Toxin B Gene (2yr or >) Negative Cdiff Gene (Neg)
[2024-12-09 11:47] LABS: Adenovirus F 40/41 PCR Not Detected (NotDetected); Astrovirus PCR Not Detected (NotDetected); Campylobacter PCR Not Detected (NotDetected); Cryptosporidium PCR Not Detected (NotDetected); Cyclospora cayetanensis PCR Not Detected (NotDetected); Entamoeba histolytica PCR Not Detected (NotDetected); Enteroaggregative E.coli(EAEC) Not Detected (NotDetected); Enteropathogenic E.coli (EPEC) Not Detected (NotDetected); Enterotoxigenic E.coli (ETEC) Not Detected (NotDetected); Giardia lamblia PCR Not Detected (NotDetected); Norovirus GI/GII PCR Not Detected (NotDetected); Plesiomonas shigelloides PCR Not Detected (NotDetected); Rotavirus A PCR Not Detected (NotDetected); Salmonella PCR Not Detected (NotDetected); Sapovirus PCR Not Detected (NotDetected); Shiga-like Toxin E.coli (STEC) Not Detected (NotDetected); Shigella/Enteroinvasive E.coli Not Detected (NotDetected); Vibrio cholerae PCR Not Detected (NotDetected); Vibrio species PCR Not Detected (NotDetected); Yersinia enterocolitica PCR Not Detected (NotDetected)
[2024-12-09] MEDS: SODIUM CHLORIDE 0.9% 500 ML IV SCH (13:01)
--- NOTE | 2024-12-09 15:04 | Discharge Summary ---
Discharge Summary Date of Service December 09, 2024 Principal Dx & Hospital Course #1 = Principal Diagnosis (1) Diabetes mellitus: (2) DKA (diabetic ketoacidosis): (3) Gastroenteritis: Plan 59 year old male with no significant PMH who presented to the ED on 12/08/2024 with complaints of right upper quadrant pain and diarrhea. Found to be newly diabetic and in mild DKA, which prompted admission. DKA Likely due to viral gastroenteritis Admitting labs revealed glucose 366, anion gap 14, bicarb 18, UA +ketones Received IV fluids and insulin drip for short period of time Labs improved and patient was transitioned to subQ insulin Tolerated regular diet prior to discharge Diabetes mellitus A1C 11.3%; lipid panel: Chol 132, LDL 83, HDL 28, Tri 105 Patient discharged on SQ insulin - glycemic pharmacist consulted Discussed lifestyle modifications and patient admits he can make lots of changes to diet and increase exercise Patient met with our nurse informatics educator while inpatient Patient has not seen a doctor in over 2 years - advise establishment with PCP for further outpatient management - is scheduling an appointment with [facility] Abdominal pain Gastroenteritis Patient reports diarrhea x2 days, likely viral RUQ US and CT abdomen negative for acute processes Stool PCR and cdiff gene and toxin all negative Recommend supportive care Abnormal CT findings Incidental findings include: -Severe fatty liver (of note, transaminitis with AST 68 and ALT 56) -Small calculus at left mid kidney and tiny cyst left mid kidney -Mild atherosclerotic calcifications -Prostate mildly enlarged -Urinary bladder is mildly distended -Sigmoid diverticulosis -Mild lower lumbar disc disease with grade 1 anterolisthesis of L5 on S1 Patient seen in collaboration with Dr Sal. Please see addendum. Notes For Next Care Provider 59 year old male with no PMH who presented to [facility] ED with abdominal pain and diarrhea who was found to be newly diabetic and in mild DKA. DKA resolved with IV fluids and an insulin drip for a short period of time. Labs improved and patient was tolerating a regular diet by time of discharge. Diarrhea likely related to viral gastroenteritis. Obtained stool PCR and cdiff studies which were all negative. Recommend supportive care for diarrhea. A1C found to be 11.3%. Patient met with nurse informatics educator while inpatient. Discharged on subQ insulin. Recommend further outpatient management of new diagnosis of DM. Admission HPI Per Admitting Provider The patient is a 59-year-old male with no past medical history who presents to the ED on 12/08/2024 with complaints of abdominal pain and diarrhea over the past 2 days. Reports his 8-year-old daughter also has a respiratory illness. His [id number] had C. difficile 3 weeks ago. Patient reports right upper quadrant abdominal pain. Denies any nausea or vomiting. Reports chills but denies any actual fevers. Reports the last time he saw a Dr. Was about 2 years ago. Unsure of the last time he got blood work. Was never diagnosed with diabetes or prediabetes. On arrival to the ED, labs remarkable for WBC 14, blood glucose 366, NA 124, bicarb 18, anion gap 14, AST 46 Urinalysis + ketones Gallbladder ultrasound negative Abdomen/pelvis CT negative for anything acute, severe fatty liver noted The patient will be admitted for further management of gastritis and new diabetes and suspected DKA Admission Exam Per Admitting Provider Constitutional: WD/WN, vitals as above Eyes: PERRL, conjunctivae normal, anicteric sclerae ENMT: external ear and nose normal, oropharynx normal Neck: trachea midline, no thyromegaly Respiratory: normal respiratory effort, lungs clear to auscultation Cardiovascular: RRR, no murmur, no edema Gastrointestinal (Abdomen): normal bowel sounds, soft, nontender, no hepatosplenomegaly Musculoskeletal: no cyanosis or clubbing, extremities motor strength 5/5 Skin: no rashes, warm and dry Neurologic: PERRL, EOMI, accommodation nl, no face palsy, no dysarthria Psychiatric: A+Ox3, euthymic affect Lymphatic: no cervical or axillary lymphadenopathy Discharge Exam General/Psych: WD/WN, sitting up in bed, NAD, conversing easily, euthymic affect Head: normocephalic, atraumatic Eyes: normal inspection, PERRL, conjunctivae pink, anicteric sclerae ENT: external ear and nose normal, oropharynx normal Neck: normal visual inspection, trachea midline Respiratory: normal respiratory effort, lungs clear to auscultation, no wheeze/rales/rhonchi, no accessory muscle use Cardiovascular: regular rate and rhythm, no murmur/rub/gallop, no JVD Extremities: no cyanosis or clubbing, normal peripheral pulses, no BLE edema Abdomen/GI: normal bowel sounds, soft, nontender, no hepatosplenomegaly Neurologic/MSK: A+Ox3, motor strength 5/5, moves all extremities Skin: no rashes, normal color, warm and dry Updated Medication List Medication Instructions Recorded Confirmed Type No Known Home Medications 12/08/24 12/08/24 History Hospital Stay Data Consultations 12/08/24 14:58 ED Decision to Admit Stat Diagnostic Imagining Performed Abdomen/Pelvis CT 12/08/24 10:[address] WITH IV CONTRAST CT DOSE: 1497.24 mGy.cm HISTORY: RUQ pain TECHNIQUE: Multiaxial CT images of the abdomen and pelvis were performed following the IV administration of 90 cc of Optiray, A dose lowering technique was utilized adhering to the principles of ALARA. COMPARISON STUDY: None FINDINGS: ABDOMEN: There is severe fatty liver. Otherwise the liver, gallbladder, spleen, pancreas, and adrenal glands are unremarkable. Kidneys show no hydronephrosis. There are is a small calculus at the left mid kidney. There is a tiny cyst left mid kidney. There are mild atherosclerotic calcifications. No abdominal aortic aneurysm. Pelvis: Prostate is mildly enlarged. Urinary bladder is mildly distended. There is sigmoid diverticulosis. No acute diverticulitis. No bowel inflammation or obstruction seen. No free fluid, free air, or abscess. There is mild lower lumbar disc disease with grade 1 anterolisthesis of L5 on S1. IMPRESSION: No acute findings seen. ACT 112: Negative or not required by law. The above report was generated using voice recognition software. It may contain grammatical, syntax or spelling errors. Electronically signed by: Bart Ireland M.D. 12/08/2024 12:28 PM Gallbladder Ultrasound 12/08/24 12:32 US gallbladder CLINICAL HISTORY: RUQ pain COMPARISON STUDY: CT scan earlier today FINDINGS: Pancreas is obscured by bowel gas. There is severe fatty liver. Deep portion of the liver is not well seen. Common bile duct has normal diameter of 5 mm. Gallbladder is unremarkable with no gallstones or gallbladder wall thickening. No pericholecystic fluid or ascites. Right kidney shows no hydronephrosis. IMPRESSION: 1. No gallstones or evidence of acute cholecystitis seen. 2. Severe fatty liver. ACT 112: Negative or not required by law. Electronically signed by: Bart Ireland M.D. 12/08/2024 1:[address] 12/08/24 17:39 EXAM: CT head/brain wo con CLINICAL HISTORY: headache, confusion TECHNIQUE: Axial non-contrast CT scan of the brain was performed from the skull base to the high parietal region. One of the following dose reduction techniques were utilized for this exam: Automated exposure control, adjustment of the mA and/or kV according to patient size, use of iterative reconstruction. COMPARISON: none. FINDINGS: Brain Parenchyma: Normal attenuation of the cerebral hemispheres, cerebellum, and brainstem. No evidence of acute infarct, hemorrhage, or mass effect. No abnormal areas of hypo- or hyperattenuation. Ventricular System: Ventricles are normal in size and configuration. No evidence of hydrocephalus or ventricular enlargement. Subarachnoid Spaces: Normal sulci and cisterns. No evidence of subarachnoid hemorrhage or extra-axial fluid collections. Cerebellum and Brainstem: No masses, lesions, or areas of abnormal density. Orbits: Normal appearance of the globes, optic nerves, and extraocular muscles. No evidence of orbital masses or abnormal density. Sinuses: Clear paranasal sinuses. No evidence of sinusitis or mucosal thickening. Mastoid Air Cells: Clear mastoid air cells. No evidence of mastoiditis. Skull: Normal skull morphology. IMPRESSION: Normal CT of the head without contrast. No evidence of acute infarct, hemorrhage, or mass effect. Electronically signed by Jak Dai 12-08-2024 8:29 PM Pending Results Patient Have Any Pending Studies at Discharge: Yes Discharge Instructions Given to Patient (Per Discharging Provider) You presented to the hospital with abdominal pain and diarrhea. We performed labs which showed you were in diabetic ketoacidosis (DKA), which is a complication of diabetes mellitus, which you are now being diagnosed with. We treated your DKA with IV insulin and IV fluids, and monitored your labs closely, which improved on these IV drips. The DKA was likely caused by your viral GI bug. We tested your stool and you do not have c diff. You should continue to hydrate and eat a gentle diet such as bananas, rice, applesauce, and toast. Your hemoglobin A1C was found to be 11%. In a patient with known diabetes, we typically like that number to be around 7%. Since you are newly diagnosed, we started you on subcutaneous insulin and you met with our nurse informatics educator who reviewed important pieces of management of diabetes at home. We highly recommend you establish care with a PCP so that they can monitor and manage your diabetes further. We also recommend lifestyle modifications such as eating a healthy well balanced diet and getting regular physical activity. MEDICATION CHANGES: SUMMARY OF TEST RESULTS: See above PENDING TEST RESULTS: Glutamic acid decarboxylase-65 RECOMMENDATIONS FOR FOLLOW-UP: Please follow up with a PCP to discuss your new diagnosis of diabetes and for further management of this. OTHER INSTRUCTIONS: Seek medical attention if you have: * temperature above 101 * chest pain or trouble breathing * abdominal pain, nausea, vomiting * diarrhea, dark stools or bloody stools * any unanswered questions or concerns Call 911 if symptoms are severe. It has been a pleasure taking care of you. Please take care of yourself. If you have any questions regarding your recent hospitalization please contact [facility] and request Omero Haileist @ [phone]. Total Time Total Time Spent Total Time Spent (In Minutes): I spent a total of 35 minutes coordinating, documenting and providing care for this patient excluding time spent in the performance of separately billed services or time spent by another provider/QHP.
--- NOTE | 2024-12-09 15:42 | Hospitalist Progress Note ---
Date of Service December 09, 2024 Assessment & Plan (1) Diabetes mellitus: (2) DKA (diabetic ketoacidosis): (3) Gastroenteritis: (4) Contact dermatitis: Plan 59 year old male with no significant PMH who presented to the ED on 12/08/2024 with complaints of right upper quadrant pain and diarrhea. Found to be newly diabetic and in mild DKA, which prompted admission. DKA Likely due to viral gastroenteritis Admitting labs revealed glucose 366, anion gap 14, bicarb 18, UA +ketones Received IV fluids and insulin drip for short period of time Labs improved and patient was transitioned to subQ insulin Tolerating carb consistent diet Diabetes mellitus A1C 11.3%; lipid panel: Chol 132, LDL 83, HDL 28, Tri 105 Patient to be discharged on SQ insulin - glycemic pharmacist consulted Discussed lifestyle modifications and patient admits he can make lots of changes to diet and increase exercise Patient met with our patient educator on 12/09/2024 Patient has not seen a doctor in over 2 years - advise establishment with PCP for further outpatient management - is scheduling an appointment with [facility] Abdominal pain Gastroenteritis Patient reports diarrhea x6 days, likely viral RUQ US and CT abdomen negative for acute processes Stool PCR and cdiff gene and toxin all negative Recommend supportive care with fluids and immodium PRN Rash New onset rash to back of right knee and lower left back Appears contact dermatitis in nature Not bothersome to patient unless touched Cortisone ointment PRN Abnormal CT findings Incidental findings include: -Severe fatty liver (of note, transaminitis with AST 68 and ALT 56) -Small calculus at left mid kidney and tiny cyst left mid kidney -Mild atherosclerotic calcifications -Prostate mildly enlarged -Urinary bladder is mildly distended -Sigmoid diverticulosis -Mild lower lumbar disc disease with grade 1 anterolisthesis of L5 on S1 Rash New onset rash to back of right knee and lower left back Appears contact dermatitis in nature Not bothersome to patient unless touched Cortisone ointment PRN Code Status: FULL CODE PCP: None Disposition: downgrade to med surg and plan for dc tomorrow Patient seen in collaboration with Dr Sal. Please see addendum. I spent a total of 60 minutes coordinating, documenting and providing care for this patient excluding time spent in the performance of separately billed services or time spent by another provider/QHP. Admission and Anticipated Discharge Date Admission Date: December 08, 2024 Supervising Physician Co-Signing Physician Notes Patient seen and examined at bedside. Patient doing well today overall, still having some lightheadedness, some diarrhea, otherwise feels close to baseline. See my above physical exam that I added. Patient with newly diagnosed diabetes mellitus c/b DKA, likely triggered by gastroenteritis which has now resolved. Will monitor overnight and give fluids, likely discharge tomorrow. I have seen and discussed the case with the collaborating advanced practitioner. I agree with the above H&P. I have reviewed and confirmed the patients medical history, the findings on physical examination, and the patients diagnosis and treatment plan with Otilia PERES and agree with the information documented. I spent a total of 30 minutes coordinating, documenting, and providing care for this patient excluding time spent in the performance of separately billed services. All of the aforementioned completed outside of collaborating with the assigned advanced practitioner for a full treatment plan. I have reviewed the advanced practitioner's documentation, and I agree with, and take responsibility for the plan of care Subjective Patient seen and examined at bedside. Patient feeling a bit lightheaded with movement, some diarrhea, otherwise close to baseline. Review of Systems Review of Systems: CONSTITUTIONAL: lightheaded, diarrhea EYES: Patient denies any visual symptoms. EARS, NOSE, AND THROAT: No difficulties with hearing. No symptoms of rhinitis or sore throat. CARDIOVASCULAR: Patient denies chest pains, palpitations, orthopnea and paroxysmal nocturnal dyspnea. RESPIRATORY: No dyspnea on exertion, no wheezing or cough. GI: No nausea, vomiting, diarrhea, constipation, abdominal pain, hematochezia or melena. : No urinary hesitancy or dribbling. No nocturia or urinary frequency. No abnormal urethral discharge. MUSCULOSKELETAL: No myalgias or arthralgias. NEUROLOGIC: No chronic headaches, no seizures. Patient denies numbness, tingling or weakness. PSYCHIATRIC: Patient denies problems with mood disturbance. No problems with anxiety. ENDOCRINE: No excessive urination or excessive thirst. DERMATOLOGIC: Patient denies any rashes or skin changes. Physical Exam Physical Exam: Gen: A&O NAD HEENT: NCAT, EOMI, not icteric. External ears normal. No rhinorrhea. Moist mucous membranes. Neck: Supple, full range of motion, no observable masses, No meningeal sign. Lungs: No Respiratory distress. CV: RRR, no edema. Abdomen: Soft, nondistended, No rebound tenderness. MSK: No joint swelling, no redness. Skin: No rashes, petechiae, lesions. Normal color per patient. Neuro: Normal Gait, Grossly intact. Psych: Appropriate for situation. Results & Data Results & Data Vital Signs (Past 12 Hours) Vital Signs Temp Pulse Pulse Resp BP Pulse Ox O2 Del Method 12/09/24 11:21 37.0 C 85 18 132/84 96 Room Air 12/09/24 10:00 Room Air 12/09/24 07:20 37.4 C 88 18 110/73 95 Room Air 12/09/24 07:05 94 H 12/09/24 03:54 36.7 C 82 16 110/72 96 Room Air Laboratory Results -personally reviewed, AG closed x2, creatinine improved since admission Medications Administered Acetaminophen (Acetaminophen 325 Mg Tab) 650 mg PO Q4H PRN PRN Reason: fever/pain Stop: 01/07/25 17:21 Last Admin: 12/09/24 15:48 Dose: 650 mg Documented By: Admin: 12/09/24 08:21 Dose: 650 mg Documented By: Admin: 12/09/24 00:02 Dose: 650 mg Documented By: Admin: 12/08/24 17:33 Dose: 650 mg Documented By: IZZY Insulin Aspart (Insulin Aspart Per Unit Charge) 0 units SC ACHS [facility] Stop: 01/07/25 20:59 Last Admin: 12/09/24 12:59 Dose: 8 units Documented By: ELMER Co-signed By: MARTA Admin: 12/09/24 08:30 Dose: 4 units Documented By: ELMER Co-signed By: ANGELITO Admin: 12/08/24 21:39 Dose: 2 units Documented By: SANDOVAL Co-signed By: LINO Insulin Glargine (Lantus Per Unit Charge) 25 units SC DAILY [facility] Stop: 01/08/25 08:59 Last Admin: 12/09/24 08:31 Dose: 25 units Documented By: ELMER Co-signed By: ANGELITO (1) Diabetes mellitus Diabetes mellitus complication detail: without coma Diabetes mellitus complication status: with ketoacidosis Diabetes mellitus exterminator helper termite insulin use: without exterminator helper termite use Diabetes mellitus type: type 2 Qualified Code(s): E11.10 - Type 2 diabetes mellitus with ketoacidosis without coma (2) DKA (diabetic ketoacidosis) Diabetes mellitus complication detail: without coma Diabetes mellitus type: type 2 Qualified Code(s): E11.10 - Type 2 diabetes mellitus with ketoacidosis without coma
[2024-12-09] MEDS: LOPERAMIDE HCL 2 MG CAP PO PRN (17:10)
[2024-12-09] MEDS: SODIUM CHLORIDE 0.9% 1,000 ML IV SCH (17:12)
[2024-12-09] MEDS: HYDROCORTISONE 1% CRM 30 GM TUBE EXT PRN (18:15)
[2024-12-10 06:42] LABS: BUN Creatinine Ratio 14.1 (10-20); Calcium 7.9 mg/dl (8.6-10.3); Creatinine Clr Calc Pharmacy 112.6 ml/min; Magnesium 1.9 mg/dl (1.7-2.4); Phosphorus 2.4 mg/dl (2.5-4.9); Potassium 3.6 mmol/L (3.5-5.1)
[2024-12-10 07:17] LABS: Hematocrit (blood only) 37.3 % (42.0-52.0); Hemoglobin 12.8 g/dl (14.0-18.0); Mean Corpuscular Hemoglobin 28.2 pg (25.0-34.0); Mean Corpuscular Hgb Conc 34.3 g/dL (32.0-36.0); Mean Corpuscular Volume 82.2 fL (80.0-100.0); Mean Platelet Volume 12.7 fL (9.4-12.4); Platelet Count 122 K/uL (130-400); Platelet Estimate Normal (Normal); RDW Standard Deviation 36.3 fL (36.4-46.3); Red Blood Count 4.54 M/uL (4.70-6.10); White Blood Count 11.05 K/ul (4.8-10.8)
[2024-12-10] MEDS: LANTUS PER UNIT CHARGE SC SCH (08:50)
--- NOTE | 2024-12-10 10:42 | XRay Report ---
XR chest 1V portable CLINICAL HISTORY: febrile COMPARISON STUDY: 12/10/2024 FINDINGS: Heart size and pulmonary vasculature are normal. No effusion, consolidation, or pneumothora x. IMPRESSION: No pneumonia seen. ACT 112: Negative or not required by law. Electronically signed by: Bart Ireland M.D. 12/10/2024 10:40 AM
[2024-12-10] MEDS: DOXYCYCLINE HYCLATE 100 MG CAP PO STA (11:14)
[2024-12-10] MEDS: cefTRIAXone SODIUM 2,000 MG/50 ML BAG IV SCH (11:14)
--- NOTE | 2024-12-10 14:22 | Pharmacy Report ---
Pharmacy Glycemic Short Note 2 - Date of Service December 10, 2024 - Glycemic Short BSG Results (Last 24 hours): 12/09/24 12/09/24 12/10/24 16:18 20:05 05:46 Glucose 135 H POC Glucose 149 H 169 H 12/10/24 12/10/24 07:35 11:20 Glucose POC Glucose 126 H 160 H OUTPATIENT ANTIDIABETIC REGIMEN: * n/a A1c = 11.3% ASSESSMENT: 12/10: * Allen received 49 units of SC insulin yesterday (25 units basal, 24 units bolus) * Fasting BSG of 126 mg/dL. Although at goal, anticipate further reduction in fasting with repeated doses of Lantus. Will decrease Lantus dose by ~20%. * Post prandial BSG control is adequate. No changes to Novolog today. 12/09: * Patient presenting with complaints of right upper quadrant pain/diarrhea. Also found to be newly diabetic/mild DKA on admission. Had initially been started on insulin infusion, however labs quickly resolved and transitioned to SQ insulin * Fasting BSG 205 mg/dL this AM - plan to start basal 0.2 units/kg daily in addition to novolog. A1c ~11% - patient would likely benefit from insulin at time of discharge. DM educator consulted. PLAN FOR INPATIENT GLYCEMIC CONTROL: * Basal insulin * Lantus 20 units SC daily * Bolus insulin * NovoLog per scale ACHS or Q6hrs while NPO * Goal Range: Low 110 mg/dL - High 140 mg/dL * Correction Factor: 20 mg/dL/unit * Nutritional / Prandial insulin per carb ratio of 1 unit per 7 grams CHO consumed
--- NOTE | 2024-12-10 15:31 | Hospitalist Progress Note ---
Date of Service December 10, 2024 Assessment & Plan (1) Diabetes mellitus: (2) DKA (diabetic ketoacidosis): (3) Gastroenteritis: (4) Cellulitis: (5) Abnormal CT of the abdomen: Plan Patient is a 59-year-old male with no significant past medical history who presented to the ED on 12/08/24 with complaints of right upper quadrant pain and diarrhea. He was found to be in mild DKA ISO newly diagnosed DM which subsequently prompted admission. #Newly diagnosed DM c/b DKA Hgb A1c 11.3%; lipid panel: chol 132, LDL 83, HDL 28, tri 105 Admitting labs revealed glucose 366, anion gap 14, bicarb 18, + ketonuria S/p IVF and short-term IV insulin drip w/ subsequent resolution in DKA Transitioned to SQ insulin Seen by para educator, d/c recs: -Semglee 1x/day (25U) in AM. -Start Metformin via outpatient providers office/once GI symptoms resolve -Dexcom G7 CGM for 24/7 close monitoring --> if fingersticks, SMBG 2x/day (fasting and another time) -Lifestyle changes --> healthy/balanced meals with fiber/carbs, more non- starchy vegetables, small portions of carbs/starches Scripts sent and received at pt's pharmacy Pt has not seen a doctor in over 2 years --> is scheduling an appointment with [facility] #Abdominal pain, diarrhea #Viral gastroenteritis Stool PCR, C. diff negative Notable improvement in sx w/ supportive care (IVF, PRN Imodium) #R popliteal fossa cellulitis Also w/ small patch of erythema on L low back Developed over past 2 days Febrile this AM CXR unremarkable Cover w/ Rocephin/doxy Follow blood cultures PRN Tylenol for pain/fever Gentle maintenance IVF #Abnormal CTAP findings Incidental findings include: -Severe fatty liver (of note, transaminitis with AST 68 and ALT 56) -Small calculus at left mid kidney and tiny cyst left mid kidney -Mild atherosclerotic calcifications -Prostate mildly enlarged -Urinary bladder is mildly distended -Sigmoid diverticulosis -Mild lower lumbar disc disease with grade 1 anterolisthesis of L5 on S1 #Hyponatremia Improving Suspect 2/2 GI losses ISO above #Anemia Suspect dilutional Hgb drop 2/2 IVF Check routine iron panel, vit B12, folate Code Status: FULL CODE Disposition: Likely d/c home tomorrow pending blood cx results and clinical progression Patient seen in collaboration with Dr. Sal. Please see addendum. I spent a total of 42 minutes coordinating, documenting, and providing care for this patient excluding time spent in the performance of separately billed services or time spent by another provider/QHP. This included personally reviewing all current laboratories and imaging studies, medical reconciliation, outpatient chart review and discussion with specialists. This chart was completed in part utilizing Speech Voice Recognition Software. Grammatical errors, random word insertions, pronoun errors, and incomplete sentences are an occasional consequence of this system due to software limitations, ambient noise, and hardware issues. Any formal questions or concerns about the content, text, or information contained within the body of this dictation should be directly addressed to the provider for clarification. Admission and Anticipated Discharge Date Admission Date: December 08, 2024 Supervising Physician Co-Signing Physician Notes Patient seen and examined at bedside. Patient not doing well this morning, having some chills and sweats. On exam, right popliteal fossa erythema with warmth to touch compared to left knee, knee movement sore but intact, some erythema below where ECG stickers were placed, small erythematous patch on back. Mild sepsis with source being right popliteal fossa uncomplicated cellulitis. Blood cx x2, chest xray ordered, start ceftriaxone/doxycycline, likely medically stable for discharge home tomorrow. I have seen and discussed the case with the collaborating advanced practitioner. I agree with the above H&P. I have reviewed and confirmed the patients medical history, the findings on physical examination, and the patients diagnosis and treatment plan with Debra HERNÁNDEZ and agree with the information documented. I spent a total of 30 minutes coordinating, documenting, and providing care for this patient excluding time spent in the performance of separately billed services. All of the aforementioned completed outside of collaborating with the assigned advanced practitioner for a full treatment plan. I have reviewed the advanced practitioner's documentation, and I agree with, and take responsibility for the plan of care Subjective Patient seen and examined in room W451-2. Diarrhea and nausea resolved. Tolerating CC diet without issue. Developed erythema behind his right knee yesterday. This area is tender and warm to the touch. It is also slightly pruritic. He has another red patch on his left lower back that is erythematous but does not bother him much at all. Had a low-grade fever this morning. Review of Systems Review of Systems: At least ten systems reviewed and negative, except as noted in the subjective section. Physical Exam Physical Exam: General: WD/WN. NAD. Sitting up in bed. Very pleasant. A&Ox4. HEENT: Normocephalic, atraumatic. Conjunctivae normal. Oropharynx normal. Respiratory: Normal respiratory effort, lungs clear to auscultation. Cardiovascular: Regular rate, rhythm, normal peripheral pulses, no BLE edema. Abdomen/GI: Normal bowel sounds, soft, nontender to palpation in all quadrants. Extremities/MSK: No cyanosis or clubbing, extremities motor strength intact, moves all extremities. Neurologic: No overt focal deficits, CN's II-XI not formally tested but appear grossly intact bilaterally. Skin: + erythema on posterior R knee, warm to touch and mildly TTP. + erythematous patch on L lower back, warm to touch. Results & Data Results & Data Vital Signs (Past 12 Hours) Vital Signs Temp Pulse Resp BP Pulse Ox O2 Del Method 12/10/24 10:17 38.1 C H 12/10/24 09:00 Room Air 12/10/24 07:35 38.2 C H 86 18 125/75 96 Room Air Laboratory Results Short CBC 12/10/24 Range/Units 05:46 WBC 11.05 H (4.8-10.8) K/ul Hgb 12.8 L (14.0-18.0) g/dl Hct 37.3 L (42.0-52.0) % Plt Count 122 L (130-400) K/uL [facility] 12/10/24 05:46 Sodium 133 L Potassium 3.6 Chloride 99 Carbon Dioxide 27 BUN 13 Creatinine 0.92 Glucose 135 H Calcium 7.9 L (1) Diabetes mellitus Diabetes mellitus complication detail: without coma Diabetes mellitus complication status: with ketoacidosis Diabetes mellitus local intermodal truck driver insulin use: without fci use Diabetes mellitus type: type 2 Qualified Code(s): E11.10 - Type 2 diabetes mellitus with ketoacidosis without coma (2) DKA (diabetic ketoacidosis) Diabetes mellitus complication detail: without coma Diabetes mellitus type: type 2 Qualified Code(s): E11.10 - Type 2 diabetes mellitus with ketoacidosis without coma (4) Cellulitis Site of cellulitis: unspecified site Qualified Code(s): L03.90 - Cellulitis, unspecified
[2024-12-10] MEDS: SODIUM CHLORIDE 0.9% 1,000 ML IV SCH (16:03)
[2024-12-10] MEDS ORDERED: AMOXICILLIN/CLAVULANATE 875 MG TAB PO SCH (17:00)
[2024-12-10] MEDS: DOXYCYCLINE HYCLATE 100 MG CAP PO SCH (20:47)
[2024-12-11 06:41] LABS: BUN Creatinine Ratio 13.4 (10-20); Calcium 8.1 mg/dl (8.6-10.3); Creatinine Clr Calc Pharmacy 126.3 ml/min; Magnesium 1.9 mg/dl (1.7-2.4); Potassium 3.6 mmol/L (3.5-5.1)
[2024-12-11 06:46] LABS: Hematocrit (blood only) 35.3 % (42.0-52.0); Hemoglobin 12.2 g/dl (14.0-18.0); Mean Corpuscular Hemoglobin 28.6 pg (25.0-34.0); Mean Corpuscular Hgb Conc 34.6 g/dL (32.0-36.0); Mean Corpuscular Volume 82.7 fL (80.0-100.0); Mean Platelet Volume 12.2 fL (9.4-12.4); Platelet Count 133 K/uL (130-400); RDW Standard Deviation 36.4 fL (36.4-46.3); Red Blood Count 4.27 M/uL (4.70-6.10); White Blood Count 10.28 K/ul (4.8-10.8)
[2024-12-11 07:01] LABS: Ferritin 684.2 ng/ml (8-388)
[2024-12-11 07:20] LABS: Folate (Folic Acid),Ser orPlas 11.39 ng/ml (>5.38)
[2024-12-11 07:25] VITALS: BP 114/73; PULSE 72; RESP 17; TEMP 98.1; O2SAT 97
[2024-12-11] MEDS: LANTUS PER UNIT CHARGE SC SCH (08:26)
--- NOTE | 2024-12-11 08:26 | Pharmacy Report ---
Pharmacy Glycemic Short Note 2 - Date of Service December 11, 2024 - Glycemic Short BSG Results (Last 24 hours): 12/10/24 12/10/24 12/10/24 11:20 16:07 19:55 Glucose POC Glucose 160 H 130 H 165 H 12/11/24 12/11/24 05:38 07:20 Glucose 108 H POC Glucose 100 H OUTPATIENT ANTIDIABETIC REGIMEN: * n/a A1c = 11.3% ASSESSMENT: 12/11: * Patient received 35 units of insulin yesterday, 20 of which were basal. BSGs were [phone] mg/dL. * Fasting BSG trending down, 100 mg/dL this AM. Will reduce basal by 25% today. * No change to Novolog. Remains on Doxycycline PO and Ceftriaxone for cellulitis. Tolerating diet. 12/10: * Allen received 49 units of SC insulin yesterday (25 units basal, 24 units bolus) * Fasting BSG of 126 mg/dL. Although at goal, anticipate further reduction in fasting with repeated doses of Lantus. Will decrease Lantus dose by ~20%. * Post prandial BSG control is adequate. No changes to Novolog today. 12/09: * Patient presenting with complaints of right upper quadrant pain/diarrhea. Also found to be newly diabetic/mild DKA on admission. Had initially been started on insulin infusion, however labs quickly resolved and transitioned to SQ insulin * Fasting BSG 205 mg/dL this AM - plan to start basal 0.2 units/kg daily in addition to novolog. A1c ~11% - patient would likely benefit from insulin at time of discharge. DM educator consulted. PLAN FOR INPATIENT GLYCEMIC CONTROL: * Basal insulin * Lantus 15 units SC daily * Bolus insulin * NovoLog per scale ACHS or Q6hrs while NPO * Goal Range: Low 110 mg/dL - High 140 mg/dL * Correction Factor: 20 mg/dL/unit * Nutritional / Prandial insulin per carb ratio of 1 unit per 7 grams CHO consumed
[2024-12-11] MEDS ORDERED: CIPROFLOXACIN 500 MG TAB PO SCH (09:00)
[2024-12-11] MEDS: cefTRIAXone SODIUM 2,000 MG/50 ML BAG IV STA (09:13)
--- NOTE | 2024-12-11 09:28 | Discharge Summary ---
Discharge Summary Date of Service December 11, 2024 Principal Dx & Hospital Course #1 = Principal Diagnosis (1) Diabetes mellitus: (2) DKA (diabetic ketoacidosis): (3) Gastroenteritis: (4) Cellulitis: (5) Abnormal CT of the abdomen: Plan Patient is a 59-year-old male with no significant past medical history who presented to the ED on 12/08/24 with complaints of right upper quadrant pain and diarrhea. He was found to be in mild DKA ISO newly diagnosed DM which subsequently prompted admission. #Newly diagnosed DM c/b DKA Hgb A1c 11.3%; lipid panel: chol 132, LDL 83, HDL 28, tri 105 Admitting labs revealed glucose 366, anion gap 14, bicarb 18, + ketonuria S/p IVF and short-term IV insulin drip w/ subsequent resolution in DKA Transitioned to SQ insulin Seen by nurse informatics educator, d/c recs: -Semglee 1x/day (25U) in AM. -Start Metformin via outpatient providers office/once GI symptoms resolve -Dexcom G7 CGM for 24/7 close monitoring --> if fingersticks, SMBG 2x/day (fasting and another time) -Lifestyle changes --> healthy/balanced meals with fiber/carbs, more non- starchy vegetables, small portions of carbs/starches Scripts sent and received at pt's pharmacy Pt has not seen a doctor in over 2 years --> is scheduling an appointment with [facility] Medicine #Abdominal pain, diarrhea #Viral gastroenteritis Stool PCR, C. diff negative Resolution in sx w/ supportive care Tolerating CC diet w/ no issue #R popliteal fossa cellulitis Developed during hospitalization Febrile on 12/10 CXR unremarkable Covered w/ Rocephin/doxy Blood cxs still pending on d/c although suspicion for bacteremia is low D/c on doxy/Keflex to complete full 7-day course #Abnormal CTAP findings Incidental findings include: -Severe fatty liver (of note, transaminitis with AST 68 and ALT 56) -Small calculus at left mid kidney and tiny cyst left mid kidney -Mild atherosclerotic calcifications -Prostate mildly enlarged -Urinary bladder is mildly distended -Sigmoid diverticulosis -Mild lower lumbar disc disease with grade 1 anterolisthesis of L5 on S1 Pt provided w/ education on the above findings and he expressed understanding Further f/u w/ PCP regarding these findings advised #Hyponatremia Improved Suspect 2/2 GI losses ISO above #Anemia TIBC 204 (L), transferrin 146 (L), ferritin 684.2 (H), iron 49 (N) Vit B12, folate WNL Above labs c/w poss anemia of chronic disease H/H stable on d/c Disposition: Pt is being d/c'd home in good condition, pt to arrange PCP f/u w/ P[facility] Patient seen in collaboration with Dr. Sal. Please see addendum. I spent a total of 45 minutes coordinating, documenting, and providing care for this patient excluding time spent in the performance of separately billed services or time spent by another provider/QHP. This included personally reviewing all current laboratories and imaging studies, medical reconciliation, outpatient chart review and discussion with specialists. This chart was completed in part utilizing Speech Voice Recognition Software. Grammatical errors, random word insertions, pronoun errors, and incomplete sentences are an occasional consequence of this system due to software limitations, ambient noise, and hardware issues. Any formal questions or concerns about the content, text, or information contained within the body of this dictation should be directly addressed to the provider for clarification. Notes For Next Care Provider Incidental CTAP findings including severe fatty liver, nonobstructing renal stones, mild atherosclerotic calcifications, mildly enlarged prostate, sigmoid diverticulosis and mild lumbar DD. Recommend outpatient fasting lipid panel given evidence of atherosclerotic calcifications on imaging. Newly diagnosed diabetic. Will need to monitor BSG trend. Medication Changes From Visit 1. Semglee insulin pen and DM supplies, including CGM 2. Keflex and doxycycline for right popliteal fossa cellulitis Admission HPI Per Admitting Provider The patient is a 59-year-old male with no past medical history who presents to the ED on 12/08/2024 with complaints of abdominal pain and diarrhea over the past 2 days. Reports his 8-year-old daughter also has a respiratory illness. His [id number] had C. difficile 3 weeks ago. Patient reports right upper quadrant abdominal pain. Denies any nausea or vomiting. Reports chills but denies any actual fevers. Reports the last time he saw a Dr. Was about 2 years ago. Unsure of the last time he got blood work. Was never diagnosed with diabetes or prediabetes. On arrival to the ED, labs remarkable for WBC 14, blood glucose 366, NA 124, bicarb 18, anion gap 14, AST 46 Urinalysis + ketones Gallbladder ultrasound negative Abdomen/pelvis CT negative for anything acute, severe fatty liver noted The patient will be admitted for further management of gastritis and new diabetes and suspected DKA Admission Exam Per Admitting Provider Constitutional: WD/WN, vitals as above Eyes: PERRL, conjunctivae normal, anicteric sclerae ENMT: external ear and nose normal, oropharynx normal Neck: trachea midline, no thyromegaly Respiratory: normal respiratory effort, lungs clear to auscultation Cardiovascular: RRR, no murmur, no edema Gastrointestinal (Abdomen): normal bowel sounds, soft, nontender, no hepatosplenomegaly Musculoskeletal: no cyanosis or clubbing, extremities motor strength 5/5 Skin: no rashes, warm and dry Neurologic: PERRL, EOMI, accommodation nl, no face palsy, no dysarthria Psychiatric: A+Ox3, euthymic affect Lymphatic: no cervical or axillary lymphadenopathy Discharge Exam General: WD/WN. NAD. Sitting up in bed. Very pleasant. A&Ox4. HEENT: Normocephalic, atraumatic. Conjunctivae normal. Oropharynx normal. Respiratory: Normal respiratory effort, lungs clear to auscultation. Cardiovascular: Regular rate, rhythm, normal peripheral pulses, no BLE edema. Abdomen/GI: Normal bowel sounds, soft, nontender to palpation in all quadrants. Extremities/MSK: No cyanosis or clubbing, extremities motor strength intact, moves all extremities. Neurologic: No overt focal deficits, CN's II-XI not formally tested but appear g rossly intact bilaterally. Skin: + erythema on posterior R knee, warm to touch but nontender to palpation - slightly improved. Updated Medication List Medication Instructions Recorded Confirmed Type blood-glucose meter (Mobile Ironuch #1 ea 12/09/24 Rx Verio Flex Meter) loperamide 2 mg capsule 2 mg PO Q4 PRN loose stool #14 caps 12/09/24 Rx ondansetron 4 mg disintegrating 4 mg PO Q8H PRN nausea and 12/09/24 Rx tablet vomiting 5 days #20 tabs blood sugar diagnostic (UpDroid #50 ea 12/10/24 Rx Verio test strips) lancets 33 gauge (ScratchJr #100 ea 12/10/24 Rx Plus Lancet) pen needle, diabetic 32 gauge x #50 ea 12/10/24 Rx " (Pen Needle) cephalexin 500 mg capsule 500 mg PO QID 5 days #20 caps 12/11/24 Rx doxycycline hyclate 100 mg capsule 100 mg PO BID #11 caps 12/11/24 Rx insulin glargine-yfgn 100 unit/mL 15 unit (0.15 mL) subcut QPM #15 mL 12/11/24 Rx (3 mL) subcutaneous pen (Semglee (insulin glargine-yfgn) Pen) Hospital Stay Data Consultations 12/08/24 14:58 ED Decision to Admit Stat Diagnostic Imagining Performed 12/08/24 10:29 CT abd pelvis IV con only Stat 12/08/24 12:32 US gallbladder Stat 12/08/24 17:39 CT head/brain wo con Stat Pending Results Patient Have Any Pending Studies at Discharge: Yes Discharge Instructions Given to Patient (Per Discharging Provider) You presented to the hospital with abdominal pain and diarrhea. We performed labs which showed you were in diabetic ketoacidosis (DKA), which is a complication of diabetes mellitus, which you are now being diagnosed with. We treated your DKA with IV insulin and IV fluids and monitored your labs closely, which improved on these IV drips. The DKA was likely caused by your viral GI bug. We tested your stool and you do not have C. diff. You should continue to hydrate and eat a gentle diet such as bananas, rice, applesauce and toast. Your hemoglobin A1C was found to be 11%. In a patient with known diabetes, we typically like that number to be around 7%. Since you are newly diagnosed, we started you on subcutaneous insulin and you met with our hematology nurse educator who reviewed important pieces of management of diabetes at home. We highly recommend you establish care with a PCP so that they can monitor and manage your diabetes further. We also recommend lifestyle modifications such as eating a healthy well-balanced diet and getting regular physical activity. You were found to have cellulitis on the posterior aspect of your right knee, which is a common bacterial skin infection. You are being discharged home on an oral antibiotic called Keflex, which is outlined below. INCIDENTAL ABDOMINAL CT FINDINGS NOTED ON ADMISSION: 1. Severe fatty liver. Fatty liver disease (FLD) occurs when there's an excessive buildup of fat in the liver. It can be caused by diabetes. In many cases, fatty liver disease is asymptomatic, meaning people don't experience any symptoms. 2. Mild atherosclerotic calcifications. These can be indicative of underlying high cholesterol levels. It is recommended that you have your cholesterol levels checked by your PCP. 3. Mildly enlarged prostate. An enlarged prostate, also known as benign prostatic hyperplasia (BPH), is a common condition in older men where the prostate gland grows larger than normal. This enlargement can put pressure on the urethra, the tube that carries urine from the bladder, causing urinary problems. 4. Sigmoid diverticulosis. Diverticulosis is a common condition in which pockets develop on the inside of your colon. They usually don't cause symptoms. MEDICATION CHANGES: 1. Semglee (insulin) pen and diabetes supplies have been sent to your personal pharmacy. Please continue to routine monitor your blood sugar and take the insulin as prescribed. 2. Oral Keflex 500mg FOUR TIMES A DAY x 5 days with the first dose being TOMORROW MORNING, 12/12/2024. 3. Oral doxycycline 100mg TWICE A DAY x 11 more doses with the next dose being THIS EVENING. Again, the above antibiotics has also been sent to your personal pharmacy - [facility] @ [address] [place] [address] , [place], [place]. Please continue to take both antibiotics as prescribed and in their entirety. RECOMMENDATIONS FOR FOLLOW-UP: Please follow up with a PCP to discuss your new diagnosis of diabetes and for further management of this. Seek medical attention if you have: * temperature above 101F * chest pain or trouble breathing * abdominal pain, nausea, vomiting * diarrhea, dark stools or bloody stools * any unanswered questions or concerns Call 911 if symptoms are severe. It has been a pleasure taking care of you. Please take care of yourself. If you have any questions regarding your recent hospitalization please contact [facility] and request Omero Haileist @ [phone]. Total Time Total Time Spent Total Time Spent (In Minutes): 45 Supervising Physician Co-Signing Physician Notes Patient seen and examined at bedside. Patient doing much better today, feels ready to go home. On exam, comfortable, not tremulous or sweaty. Patient medically stable for discharge home, DKA resolved, home insulin ordered, abx ordered for cellulitis. Will need PCP and endocrinology follow ups outpatient. I have seen and discussed the case with the collaborating advanced practitioner. I agree with the above H&P. I have reviewed and confirmed the patients medical history, the findings on physical examination, and the patients diagnosis and treatment plan with Debra HERNÁNDEZ and agree with the information documented. I spent a total of 20 minutes coordinating, documenting, and providing care for this patient excluding time spent in the performance of separately billed services. All of the aforementioned completed outside of collaborating with the assigned advanced practitioner for a full treatment plan. I have reviewed the advanced practitioner's documentation, and I agree with, and take responsibility for the plan of care
== END 2024-12-11 12:11 | disposition home or self-care (01) | DRG 638 ==
LOC: ED 09:59 → SUATTDRO 15:03 → 4W 15:03 → 3E 12-10 18:34